=== PATIENT | female | born 1955 | race Caucasian/White ===

== ENCOUNTER → 2019-08-25 | Outpatient (CLI) | payer OTHER ==
[2019-08-25 09:11] LABS: Source, Urine Clean Catch
[2019-08-25 09:16] LABS: Bacteria Mod /hpf; Red Blood Cells, Urine 0-2 /hpf (0-2); Squamous Epithelial Cells Many /hpf (Few); White Blood Cells, Urine 25-50 /hpf (0-5)
== END | disposition home or self-care (01) ==
LOC: LAB SHORT 09:09 → LAB EV 09:09
PROVIDERS: General Practice
DX: N39.0 Urinary tract infection, site not specified (principal)
CPT/HCPCS: 81015; 87086

== ENCOUNTER → 2020-01-04 | Outpatient (CLI) | payer OTHER | END | disposition home or self-care (01) | LOC: LAB SHORT 08:45 → LAB 08:45 | DX: R82.79 Other abnormal findings on microbiological examination of urine (principal) | CPT/HCPCS: 87086 ==

== ENCOUNTER → 2020-02-12 | Outpatient (CLI) | payer OTHER ==
[2020-02-12 12:44] LABS: BASOPHILS ABSOLUTE AUTO 0.08 K/mm3 (0.00-0.23); BASOPHILS PERCENT AUTO 1 % (0-2); EOSINOPHILS ABSOLUTE AUTO 0.03 K/mm3 (0.00-0.68); EOSINOPHILS PERCENT AUTO 0 % (0-6); Hematocrit 41.9 % (33.0-51.0); Hemoglobin 13.3 g/dL (11.5-16.0); IMMATURE GRAN ABSOLUTE AUTO 0.03 K/mm3 (0.00-0.10); IMMATURE GRAN PERCENT AUTO 0 % (0-1); LYMPHOCYTES ABSOLUTE AUTO 2.43 K/mm3 (0.84-5.20); LYMPHOCYTES PERCENT AUTO 30 % (21-46); MONOCYTES ABSOLUTE AUTO 1.01 K/mm3 (0.16-1.47); MONOCYTES PERCENT AUTO 12 % (4-13); Mean Corpuscular HGB 28.1 pg (26.0-34.0); Mean Corpuscular HGB Conc 31.7 g/dL (31.5-36.5); Mean Corpuscular Volume 88 fL (80-100); Mean Platelet Volume 10.9 fL (9.1-12.4); NEUTROPHILS ABSOLUTE AUTO 4.67 K/mm3 (1.96-9.15); NEUTROPHILS PERCENT AUTO 57 % (41-73); Platelet Count 317 K/mm3 (150-400); RDW Coefficient Variation 14.3 % (11.7-14.2); RDW Standard Deviation 45.8 fL (35.1-46.3); Red Blood Cell Count 4.74 M/mm3 (3.80-5.20); White Blood Cell Count 8.25 K/mm3 (4.00-11.30)
[2020-02-12 12:54] LABS: Albumin, Blood 3.4 g/dL (3.4-5.0); Albumin/Globulin Ratio 0.7 (0.8-1.8); Bilirubin, Total 0.4 mg/dL (0.1-1.0); Bun/Creatinine Ratio 16.3 (12.0-20.0); Calcium, Blood 8.6 mg/dL (8.5-10.1); Creatinine, Blood 1.23 mg/dL (0.40-1.00); Globulin, Blood 4.7 g/dL (2.2-4.0); Total Protein, Blood 8.1 g/dL (6.4-8.2)
== END | disposition home or self-care (01) ==
LOC: LAB 12:09 → LAB SHORT 12:09
PROVIDERS: Nurse Practitioner
DX: R11.2 Nausea with vomiting, unspecified (principal); R10.9 Unspecified abdominal pain
CPT/HCPCS: 80053; 83690; 85025

== ENCOUNTER 2021-05-19 11:26 | Observation (INO) | payer OTHER ==
[~2021-05-19] VITALS: Ht 157.5 cm; Wt 73.2 kg
[2021-05-19 11:42] LABS: BASOPHILS ABSOLUTE AUTO 0.07 K/mm3 (0.00-0.23); BASOPHILS PERCENT AUTO 1 % (0-2); EOSINOPHILS ABSOLUTE AUTO 0.06 K/mm3 (0.00-0.68); EOSINOPHILS PERCENT AUTO 1 % (0-6); Hematocrit 41.4 % (33.0-51.0); Hemoglobin 13.2 g/dL (11.5-16.0); IMMATURE GRAN ABSOLUTE AUTO 0.02 K/mm3 (0.00-0.10); IMMATURE GRAN PERCENT AUTO 0 % (0-1); LYMPHOCYTES ABSOLUTE AUTO 3.23 K/mm3 (0.84-5.20); LYMPHOCYTES PERCENT AUTO 36 % (21-46); MONOCYTES ABSOLUTE AUTO 0.88 K/mm3 (0.16-1.47); MONOCYTES PERCENT AUTO 10 % (4-13); Mean Corpuscular HGB 26.7 pg (26.0-34.0); Mean Corpuscular HGB Conc 31.9 g/dL (31.5-36.5); Mean Corpuscular Volume 84 fL (80-100); Mean Platelet Volume 11.1 fL (9.1-12.4); NEUTROPHILS ABSOLUTE AUTO 4.64 K/mm3 (1.96-9.15); NEUTROPHILS PERCENT AUTO 52 % (41-73); Platelet Count 403 K/mm3 (150-400); RDW Coefficient Variation 15.4 % (11.7-14.2); RDW Standard Deviation 46.2 fL (35.1-46.3); Red Blood Cell Count 4.95 M/mm3 (3.80-5.20)
[2021-05-19 12:03] LABS: Alanine Aminotransfer (ALT/SGP 21 U/L (12-78); Albumin, Blood 3.5 g/dL (3.4-5.0); Albumin/Globulin Ratio 0.7 (0.8-1.8); Alk Phos 146 U/L (50-136); Anion Gap 6 mmol/L (6-16); Aspartate Aminotrans (AST/SGOT 42 U/L (12-37); Bilirubin, Total 0.4 mg/dL (0.1-1.0); Blood Urea Nitrogen 18 mg/dL (8-24); Bun/Creatinine Ratio 12.9 (12.0-20.0); CO2, Blood 29 mmol/L (21-32); Calcium, Blood 9.5 mg/dL (8.5-10.1); Chloride, Blood 106 mmol/L (98-108); Globulin, Blood 4.9 g/dL (2.2-4.0); Glomerular Filtration Rate 40 (60-); Glucose, Blood 99 mg/dL (70-99); Potassium, Blood 4.1 mmol/L (3.5-5.5); Sodium, Blood 141 mmol/L (136-145); Total Protein, Blood 8.4 g/dL (6.4-8.2); Troponin I <0.015 ng/mL (0.000-0.040)
[2021-05-19] MEDS ORDERED: ZOLP10 PO (17:13)
[2021-05-19 17:24] LABS: U Amphetamine Screen Not Detected; U Barbituate Screen Not Detected; U Benzodiazapine Screen Not Detected; U Buprenorphine Screen Not Detected; U Cannabinoids Screen Not Detected; U Cocaine Screen Not Detected; U Methadone Screen Not Detected; U Methamphetamine Screen Not Detected; U Opiates Screen Not Detected; U Oxycodone Screen Not Detected; U Phencyclidine Screen Not Detected; U Propoxyphene Screen Not Detected
[2021-05-19] MEDS ORDERED: LEVSOD100 PO (18:02)
[2021-05-19] MEDS ORDERED: ATOR40TA PO (18:03)
[2021-05-19] MEDS ORDERED: CITA20 PO (18:04)
[2021-05-19] MEDS ORDERED: Inderal60 MG PO (18:04)
[2021-05-19] MEDS ORDERED: Norco 10-325 T1 EACH PO (18:04)
[2021-05-19] MEDS ORDERED: EXCEDRIN (18:07)
--- NOTE | 2021-05-20 01:43 | NUR ---
2100 PT FELT NAUSEOUS AND COULD NOT TAKE ORAL MEDS AT THIS TIME. HOSPITALIST DR. METZGER NOTIFIED. IV ZOFRAN ORDERED AND GIVEN. BLOOD SUGAR Q6 PT CONTINUES TO BE NPO. BLOOD SUGAR IN THE 'S. HOSPITALIST DR. RANGEL ORDERED D5 WITH HALF NORMAL SALINE TO RUN AT 100ML TOTAL OF 1 AND A HALF LITERS. 2230 PT'S NAUSEA IS BETTER. SCHEDULED MEDS GIVEN. PT REFUSED ORDERED MAALOX PT THEW THIS UP WHEN IT WAS GIVEN PREVIOUSLY. 2300 PT IS CURRENTLY ASLEEP IN BED. CALL LIGHT WITHIN REACH. WILL CONTINUE TO MONITOR.
--- NOTE | 2021-05-20 06:39 | NUR ---
BACKUP SAWYER SUMMARY PT A/O X4, INDEPENDENT IN ROOM. SLEPT WELL TONIGHT. NAUSEA IS BETTER THIS AM. PT HAD SMALL SIPS OF WATER OVERNIGHT. BLOOD SUGAR IN THE LOW 100'S- IV D50 WITH HALF NORMAL SALINE RUNNING AT 100ML/HR. PLEASANT AND COOPERATIVE. BLOOP PRESSURE ON THE SOFTER SIDE THIS AM BUT PT HAS BEEN SLEEPING. CALL LIGHT WITHIN REACH, ABLE TO MAKE NEEDS KNOWN. WILL REPORT TO ONCOMING RN.
[2021-05-20 06:50] LABS: Hematocrit 34.6 % (33.0-51.0); Hemoglobin 10.8 g/dL (11.5-16.0); Mean Corpuscular HGB 26.8 pg (26.0-34.0); Mean Corpuscular HGB Conc 31.2 g/dL (31.5-36.5); Mean Corpuscular Volume 86 fL (80-100); Platelet Count 283 K/mm3 (150-400); RDW Coefficient Variation 15.3 % (11.7-14.2); RDW Standard Deviation 48.2 fL (35.1-46.3); Red Blood Cell Count 4.03 M/mm3 (3.80-5.20); White Blood Cell Count 7.37 K/mm3 (4.00-11.30)
[2021-05-20 07:22] LABS: Alanine Aminotransfer (ALT/SGP 17 U/L (12-78); Albumin, Blood 2.9 g/dL (3.4-5.0); Albumin/Globulin Ratio 0.8 (0.8-1.8); Alk Phos 113 U/L (50-136); Anion Gap 5 mmol/L (6-16); Aspartate Aminotrans (AST/SGOT 18 U/L (12-37); Bilirubin, Total 0.3 mg/dL (0.1-1.0); Blood Urea Nitrogen 9 mg/dL (8-24); Bun/Creatinine Ratio 7.5 (12.0-20.0); CO2, Blood 30 mmol/L (21-32); Calcium, Blood 8.3 mg/dL (8.5-10.1); Chloride, Blood 107 mmol/L (98-108); Cholesterol 170 mg/dL (50-200); Globulin, Blood 3.6 g/dL (2.2-4.0); Glomerular Filtration Rate 48 (60-); Glucose, Blood 106 mg/dL (70-99); Magnesium, Blood 2.1 mg/dL (1.6-2.4); Potassium, Blood 3.4 mmol/L (3.5-5.5); Sodium, Blood 142 mmol/L (136-145); Total Protein, Blood 6.5 g/dL (6.4-8.2); Triglycerides 187 mg/dL (30-160)
--- NOTE | 2021-05-20 10:14 | NUR ---
echocardiogram completed
[2021-05-20] MEDS ORDERED: ACET325 PO (17:37)
[2021-05-20] MEDS ORDERED: ALUMINUM H320 MG/5 M PO (17:37)
[2021-05-20] MEDS ORDERED: CEFU500T30 PO (17:37)
[2021-05-20] MEDS ORDERED: POTCHL20ER PO (17:38)
[2021-05-20] MEDS ORDERED: ONDA4ODT MM (17:38)
[2021-05-20] MEDS ORDERED: FAMO20 PO (17:38)
[2021-05-20] MEDS ORDERED: LACT PO (17:39)
--- NOTE | 2021-05-20 18:51 | NUR ---
DISCHARGED HOME. TEACHBACK METHOD EFFECTIVE AND ALL OF THE PATIENT'S QUESTIONS WERE ANSWERED. VERBALIZED UNDERSTANDING OF THE DISCHARGE ORDERS. ALL PERSONAL BELONGINGS SENT HOME WITH PATIENT.
== END 2021-05-20 18:40 | disposition home or self-care (01) ==
LOC: ER 11:26 → MEDS 11:27
PROVIDERS: Emergency Medicine; ADMIT Family Medicine
DX: R07.9 Chest pain, unspecified (principal); R12 Heartburn; K44.9 Diaphragmatic hernia without obstruction or gangrene; K21.9 Gastro-esophageal reflux disease without esophagitis; N39.0 Urinary tract infection, site not specified; B96.1 Klebsiella pneumoniae [K. pneumoniae] as the cause of diseases classified elsewhere; N17.9 Acute kidney failure, unspecified; R74.01 Elevation of levels of liver transaminase levels; E87.6 Hypokalemia; R53.1 Weakness; R53.83 Other fatigue; R06.02 Shortness of breath; R11.2 Nausea with vomiting, unspecified; I11.9 Hypertensive heart disease without heart failure; R94.31 Abnormal electrocardiogram [ECG] [EKG]; J44.9 Chronic obstructive pulmonary disease, unspecified; Z87.891 Personal history of nicotine dependence
CPT/HCPCS: 36415; 71046; 71260; 78452; 80053; 82465; 82947; 83690; 83735; 83880; 84145; 84443; 84478; 84484; 85025; 85027; 85379; 93005; 93010; 93017; 93306; 94762; 96372; 96374; 96375; 96376; 99285-25; A9270; A9500; G0378; J0696; J0706; J1644; J2270; J2405; J2765; J2785; J7030; J7042; Q9967

== ENCOUNTER 2021-06-21 08:23 | Day surgery (SDC) | payer OTHER ==
[~2021-06-21] VITALS: Ht 160 cm; Wt 71.7 kg
[~2021-06-21 08:23] MED LIST: ACET325 PO; ALUMINUM H320 MG/5 M PO; ATOR40TA PO; CEFU500T30 PO; CITA20 PO; EXCEDRIN; FAMO20 PO; Inderal60 MG PO; LACT PO; LEVSOD100 PO; Norco 10-325 T1 EACH PO; ONDA4ODT MM; POTCHL20ER PO; ZOLP10 PO
[2021-06-21] MEDS ORDERED: AMOXICILLI250 MG/5 M (08:38)
== END 2021-06-21 10:27 | disposition home or self-care (01) ==
LOC: ORSCSDS 08:23
PROVIDERS: Surgery
PROC: 0DB68ZX Excision of Stomach, Via Natural or Artificial Opening Endoscopic, Diagnostic (ICD-10-PCS; principal; 2021-06-21 09:30)
PROC: 0DJD8ZZ Inspection of Lower Intestinal Tract, Via Natural or Artificial Opening Endoscopic (ICD-10-PCS; principal; 2021-06-21 09:30)
PROC: 0DB48ZX Excision of Esophagogastric Junction, Via Natural or Artificial Opening Endoscopic, Diagnostic (ICD-10-PCS; principal; 2021-06-21 09:30)
DX: K21.9 Gastro-esophageal reflux disease without esophagitis (principal); K92.1 Melena; K44.9 Diaphragmatic hernia without obstruction or gangrene; I10 Essential (primary) hypertension; Z79.899 Other long term (current) drug therapy
CPT/HCPCS: 88305; 88342; J2704; J7120

== ENCOUNTER → 2022-05-12 | Outpatient (CLI) | payer MEDICARE, OTHER ==
[~2022-05-12] MED LIST changes: +AMOXICILLI250 MG/5 M; +CYCL10 PO; +Effexor Xr37.5 MG PO; +FLUT1DIS5 INH; -Inderal60 MG PO; +LORA10ER PO; +OMEP20ER PO; +Propranolol HCl60 MG PO
== END | disposition home or self-care (01) ==
LOC: LAB 11:32 → LAB SHORT 11:32
DX: R30.9 Painful micturition, unspecified (principal)
CPT/HCPCS: 87070; 87205

== ENCOUNTER 2023-05-06 09:58 | Emergency (ER) | payer MEDICARE, OTHER ==
[~2023-05-06] VITALS: Ht 157.5 cm; Wt 63.5 kg
[2023-05-06] MEDS ORDERED: EUTHYROX75 MC1 PO (10:55)
[2023-05-06] MEDS ORDERED: PROZAC2010 PO (10:55)
[2023-05-06] MEDS ORDERED: NABU500 PO (10:55)
[2023-05-06] MEDS ORDERED: FOSAMAX70 MG PO (10:57)
[2023-05-06 11:53] VITALS: BP 132/82
== END 2023-05-06 11:53 | disposition home or self-care (01) ==
LOC: ER 09:58
DX: S09.90XA Unspecified injury of head, initial encounter (principal); F07.81 Postconcussional syndrome; W01.0XXA Fall on same level from slipping, tripping and stumbling without subsequent striking against object, initial encounter; Z79.890 Hormone replacement therapy; Z79.899 Other long term (current) drug therapy
CPT/HCPCS: 70450

== ENCOUNTER 2024-09-20 22:57 | Emergency (ER) | payer OTHER ==
[~2024-09-20] VITALS: Ht 160 cm; Wt 68.0 kg
[~2024-09-20 22:57] MED LIST changes: +EUTHYROX75 MC1 PO; +FOSAMAX70 MG PO; +NABU500 PO; +PROZAC2010 PO
[2024-09-20] MEDS ORDERED: Ondansetron HCl 2 MG / ML 2ML Vial IV PRN (23:20)
[2024-09-20 23:38] LABS: BASOPHILS ABSOLUTE AUTO 0.03 K/mm3 (0.00-0.23); BASOPHILS PERCENT AUTO 0 % (0-2); EOSINOPHILS ABSOLUTE AUTO 0.08 K/mm3 (0.00-0.68); EOSINOPHILS PERCENT AUTO 1 % (0-6); Hematocrit 38.3 % (33.0-51.0); Hemoglobin 12.5 g/dL (11.5-16.0); IMMATURE GRAN ABSOLUTE AUTO 0.02 K/mm3 (0.00-0.10); IMMATURE GRAN PERCENT AUTO 0 % (0-1); LYMPHOCYTES ABSOLUTE AUTO 2.15 K/mm3 (0.84-5.20); LYMPHOCYTES PERCENT AUTO 32 % (21-46); MONOCYTES ABSOLUTE AUTO 0.59 K/mm3 (0.16-1.47); MONOCYTES PERCENT AUTO 9 % (4-13); Mean Corpuscular HGB 29.5 pg (26.0-34.0); Mean Corpuscular HGB Conc 32.6 g/dL (31.5-36.5); Mean Corpuscular Volume 90 fL (80-100); Mean Platelet Volume 10.9 fL (9.1-12.4); NEUTROPHILS ABSOLUTE AUTO 3.96 K/mm3 (1.96-9.15); NEUTROPHILS PERCENT AUTO 58 % (41-73); Platelet Count 266 K/mm3 (150-400); RDW Standard Deviation 42.7 fL (35.1-46.3); Red Blood Cell Count 4.24 M/mm3 (3.80-5.20); White Blood Cell Count 6.83 K/mm3 (4.00-11.30)
[2024-09-21 00:10] LABS: Albumin/Globulin Ratio 0.7 (0.8-1.8); Bilirubin, Total 0.4 mg/dL (0.1-1.0); Calcium, Blood 8.9 mg/dL (8.5-10.1); Creatinine, Blood 1.27 mg/dL (0.40-1.00); Globulin, Blood 4.2 g/dL (2.2-4.0); Potassium, Blood 3.8 mmol/L (3.5-5.5); Total Protein, Blood 7.2 g/dL (6.4-8.2)
[2024-09-21 01:42] LABS: Source, Urine Clean Catch
[2024-09-21 01:47] LABS: Bilirubin, Urine Neg (Neg); Blood, Urine Neg (Neg); Glucose Qualitative, Urine Neg (Neg); Ketones, Urine Neg (Neg); Leukocyte Esterase, Urine Neg (Neg); Nitrite, Urine Neg (Neg); Protein, Urine Neg (Neg); Urobilinogen, Urine NORM (Normal); pH, Urine 6.5 (5.0-8.0)
[2024-09-21 01:48] LABS: Appearance, Urine Clear (Clear); Color, Urine Pale Yellow (P-Yellow)
[2024-09-21] MEDS ORDERED: Mag Hydrox/AL Hydrox/Simeth 30 ML UDC PO ONE (01:55)
[2024-09-21] MEDS ORDERED: Atropine/Scopalam/Hyoscam/PB 5 ML UDC PO ONE (01:55)
[2024-09-21] MEDS ORDERED: ESTRADIOL1 M1 PO (02:07)
[2024-09-21] MEDS ORDERED: PROZAC2010 PO (02:08)
[2024-09-21] MEDS ORDERED: NITROFURANTOIN5012 PO (02:08)
[2024-09-21] MEDS ORDERED: HYDROCODONE-AC1 EAC7 PO (02:14)
[2024-09-21] MEDS ORDERED: ZOLPIDEM TARTRA10 MG PO (02:15)
[2024-09-21] MEDS ORDERED: NALOXONE HCL4 MG (02:15)
[2024-09-21 02:30] VITALS: BP 150/92
[2024-09-21] MEDS ORDERED: OMEP20ER PO (02:42)
== END 2024-09-21 02:55 | disposition home or self-care (01) ==
LOC: ER 22:57
PROVIDERS: Emergency Medicine
DX: R10.12 Left upper quadrant pain (principal); I10 Essential (primary) hypertension; Z79.890 Hormone replacement therapy; Z79.899 Other long term (current) drug therapy
CPT/HCPCS: 71046; 80053; 81003; 83690; 84484; 85025; 93005; 93010; 96374; 99284-25; A9270; J2405